=== PATIENT | male | born 1975 | race Caucasian/White ===

== ENCOUNTER 2017-06-17 05:38 | Day surgery (SDC) | payer OTHER ==
--- NOTE | 2017-06-14 13:47 | GHP ---
[f rep st] PREOP HISTORY AND PHYSICAL DATE OF ADMISSION: 06/17/2017 CHIEF COMPLAINT: Right inguinal hernia. HISTORY OF PRESENT ILLNESS: Roman is a 42-year-old man who first noticed a bulge in his right groin in 2011, which has been growing since that time. He reports that the bulge is worst with standing an d lifting and is reducible when he lays supine. He denies any fever, chills, nausea, vomiting, const ipation, diarrhea, or abdominal pain associated with the bulge. He also denies any skin changes over lying. PAST MEDICAL HISTORY: None. PAST SURGICAL HISTORY: None. MEDICATIONS: None. ALLERGIES: No known drug allergies. FAMILY HISTORY: No significant family medical history. SOCIAL HISTORY: He denies tobacco, alcohol, or recreational drug use. REVIEW OF SYSTEMS: A 10-point review of systems is negative, aside from the HPI. PHYSICAL EXAMINATION: GENERAL: Well-developed and well-nourished man in no acute distress. HEENT: Normocephalic and atraumatic. No hearing deficits. Pupils are equal and round. No scleral icterus . Mucous membranes are moist. NECK: Trachea is midline. RESPIRATORY: Clear to auscultation bilat erally with no increased work of breathing. CARDIOVASCULAR: Regular rate and rhythm with no periphe ral edema. ABDOMEN: Soft, nondistended, and nontender. He has a right-sided inguinal hernia, which increases with Valsalva. No overlying skin changes. No tenderness to palpation. No evidence of a left inguinal hernia. : Normal external male genitalia. Testes are descended bilaterally. PSYCH IATRIC: Mood and affect are normal. NEUROLOGIC: Grossly intact. IMPRESSION AND PLAN: Roman Cobb is a 42-year-old man with a symptomatic right inguinal hernia. We recommended laparoscopic possible open repair with mesh. We discussed risks of surgery including, but not limited to, heart attack, stroke, blood clots, or . We discussed risk of infection, bl eeding, and damage to surrounding structures, including bowel, bladder, and spermatic cord, which may lead to testicular ischemia. We also discussed the risk of recurrence and he understands the risks and would like to proceed. We anticipate this to be an outpatient procedure. He will receive antibi otics program management professional to the operating room. /[id number]/MODL
[2017-06-17] MEDS ORDERED: ceFAZolin 2 GM/SWFI 2 GM/20 ML SYR IVP ONE (05:40)
[2017-06-17] MEDS ORDERED: LR 1,000 ML IV ONE (05:42)
[2017-06-17] MEDS ORDERED: LIDOCAINE 1% 2 ML INJ ID PRN (05:42)
--- NOTE | 2017-06-17 06:31 | PDHPUP ---
History & Physical Update H&P update statement: This history and physical update is based on an assessment of the patient which was completed after admission or registration (within 24 hours), but prior to the surgery/procedure. H&P update: H&P reviewed & patient examined, no change in patient's condition since H&P completed
--- NOTE | 2017-06-17 06:52 | PDANEPAE ---
ANE History of Present Illness 42 M healthy for right inguinal hernia repair. ANE Past Medical History - Cardiovascular History Hx Hypertension: No Hx Arrhythmias: No Hx Chest Pain: No Hx Coronary Artery / Peripheral Vascular Disease: No Hx CHF / Valvular Disease: No Hx Palpitations: No - Pulmonary History Hx COPD: No Hx Asthma/Reactive Airway Disease: No Hx Recent Upper Respiratory Infection: No Hx Oxygen in Use at Home: No Hx Sleep Apnea: No Sleep Apnea Screening Result - Last Documented: Negative - Neurologic History Hx Cerebrovascular Accident: No Hx Seizures: No Hx Dementia: No - Endocrine History Hx Diabetes: No Hypothyroid: No Hyperthyroid: No Obesity: no - Renal History Hx Renal Disorders: No - Liver History Hx Hepatic Disorders: No - Neurological & Psychiatric Hx Hx Neurological and Psychiatric Disorders: No - Cancer History Hx Cancer: No - Congenital Disorder History Hx Congenital Disorders: No - GI History GERD: no Hx Gastrointestinal Disorders: No - Other Health History Other Health History: NEG - Chronic Pain History Chronic Pain: No - Surgical History Prior Surgeries: NONE ANE Review of Systems Review of Systems: - Exercise capacity Exercise capacity: >=4 METS METS (RN): 5 METS ANE Patient History - Allergies Allergies/Adverse Reactions: No Known Allergies Allergy (Unverified 06/15/17 17:10) - Home Medications Home Medications: NK [No Known Home Meds] 06/15/17 [Last Taken Unknown] - NPO status NPO Status: no food or drink >8 hours - Anes Hx Anes Hx: no prior problems - Smoking Hx Smoking Status: Never smoked Marijuana use: No - Alcohol Use Alcohol Use: None - Family Anes Hx Family Anes Hx: neg - N/A Family Hx Anesthesia Complications: NONE ANE Labs/Vital Signs - Vital Signs Vital Signs: reviewed preoperatively; see RN documention for details Blood Pressure: 103/64 Heart Rate: 44 Respiratory Rate: 18 O2 Sat (%): 96 Height: 187.96 cm Weight: 83.007 kg ANE Physical Exam - Airway Mallampati Score: Class 1 Mouth exam: normal dental/mouth exam - Pulmonary Pulmonary: no respiratory distress - Cardiovascular Cardiovascular: regular rate and rhythym - ASA Status ASA Status: I ANE Anesthesia Plan Anesthesia Plan: general endotracheal anesthesia Total IV Anesthesia: No
[2017-06-17] MEDS ORDERED: MIDAZOLAM 2 MG/2 ML VIAL IVP ONE (06:53)
[2017-06-17] MEDS ORDERED: BUPIVACAINE 0.5% 30 ML SDV ONE (06:57)
[2017-06-17] MEDS ORDERED: fentaNYL 100 MCG/2 ML INJ ONE (07:08)
[2017-06-17] MEDS ORDERED: ROCURONIUM 50 MG/5 ML VIAL ONE ×2 (07:08→07:40)
[2017-06-17] MEDS ORDERED: LIDOCAINE 2% 5 ML SDV ONE (07:08)
[2017-06-17] MEDS ORDERED: PROPOFOL 200 MG/20 ML VIAL ONE (07:08)
[2017-06-17] MEDS ORDERED: fentaNYL 100 MCG/2 ML INJ IVP PRN (07:28)
[2017-06-17] MEDS ORDERED: OXYCODONE/APAP 5/325 TAB PO PRN (07:28)
[2017-06-17] MEDS ORDERED: NALOXONE HCL 0.4 MG/ML INJ IVP PRN (07:28)
[2017-06-17] MEDS ORDERED: HYDROmorphONE/DILAUDID 1 MG/ML INJ IVP PRN (07:28)
[2017-06-17] MEDS ORDERED: ONDANSETRON 4 MG/2 ML VIAL IVP PRN (07:28)
[2017-06-17] MEDS ORDERED: ONDANSETRON 4 MG/2 ML VIAL ONE (07:29)
[2017-06-17] MEDS ORDERED: DEXAMETHASONE 4 MG/ML VIAL ONE (07:29)
[2017-06-17] MEDS ORDERED: KETOROLAC 30 MG/1 ML SDV ONE (07:57)
[2017-06-17] MEDS ORDERED: SUGAMMADEX SODIUM 200 MG/2 ML VIAL IVP ONE (07:59)
--- NOTE | 2017-06-17 08:03 | POSTOPPROG ---
Post Op Note Date of Operation: 06/17/17 Surgeon: Deneen Carmichael Records Administrator: reyna Anesthesiologist: darion Anesthesia: GET(General Endotracheal) Pre-op Diagnosis: right inguinal hernia Post-op Diagnosis: right initial indirect inguinal hernia Indication: 42 yo with inguinal hernia Procedure: lap rih Findings: direct inguinal hernia and none on left Inf/Abcess present in the surg proc area at time of surgery?: No Depth: Superfical (Skin SQ) EBL: Minimal
[2017-06-17 08:40] VITALS: TEMP 97.7
[2017-06-17 08:53] VITALS: PULSE 42
[2017-06-17] MEDS ORDERED: OXYCODONE/APAP 5/325 TAB ONE (08:55)
[2017-06-17 09:26] VITALS: RESP 14; O2SAT 99
[2017-06-17 09:44] VITALS: BP 100/61
--- NOTE | 2017-06-17 13:06 | POSTANESTH ---
Post Anesthetic Evaluation Cardiovascular Status: Normal, Stable, Similar to Pre-Op Cond Respiratory Status: Normal, Stable, Similar to Pre-op Cond. Level of Consciousness/Mental Status: Can Participate in Eval, Alert and Oriented Pain Control: Adequate, Prn Tx Ordered Nausea/Vomiting Control: Adequate, Prn Tx Ordered
--- NOTE | 2017-06-17 14:32 | GOP ---
[f rep st] OPERATIVE REPORT DATE OF OPERATION: 06/17/2017 SURGEON: Deneen Carmichael MD BODY COMPONENT ENGINEER: Chen Lai PA-C ANESTHESIA: General. ANESTHESIOLOGIST: Kyrie Mcfadden MD PREOPERATIVE DIAGNOSIS: Right inguinal hernia. POSTOPERATIVE DIAGNOSIS: Initial right indirect inguinal hernia. PROCEDURE PERFORMED: Laparoscopic right inguinal hernia repair with mesh. FINDINGS: Right direct hernia. No hernia on the left. SPECIMENS: None. INDICATIONS: The patient is a 42-year-old man who developed a large bulge in his right groin. DESCRIPTION OF PROCEDURE: The patient was brought into the operating room and placed supine on the table, and general anesthesia was administered. His abdomen was prepped and draped in the usual sterile fashion. Infiltrated all sites with 0.5% Marcaine prior to making incisions. I made an incision beneath his umbilicus. I dissected down below the subcutaneous tissues until I encountered the anterior rectus sheath. I divided the anterior rectus sheath, I swept the rectus muscles laterally, and inserted a balloon-tipped trocar directed toward the pubis. I performed hand insufflation with camera in place. I then exchanged this for the working balloon. This was connected to insufflation, and he was placed in a Trendelenburg position. I placed a 5 mm trocar at the pubis and a second trocar between the first and second trocars. I kept the inferior epigastric vessels anterior to the plane. I reduced the large direct inguinal hernia. I pushed the peritoneum back further on the cord. I placed a piece of laparoscopic self-fixating ProGrip mesh to cover the direct, indirect, and femoral spaces. I tacked this to the pubic tubercle and anteriorly. I then explored the left side and did not note a direct or indirect inguinal hernia. The preperitoneal space was allowed to desufflate, and the ports were removed. The fascia was closed with 0 Vicryl, skin closed with 4-0 Monocryl, and Dermabond applied. He was awakened in the operating room , extubated, and transferred to PACU in stable condition. /[id number]/MODL MTDD
== END 2017-06-17 10:05 | disposition home or self-care (01) ==
LOC: FSGY 05:38
PROVIDERS: ATTEND Surgery
PROC: 0YU54JZ Supplement Right Inguinal Region with Synthetic Substitute, Percutaneous Endoscopic Approach (ICD-10-PCS; principal; 2017-06-17 07:15)
DX: K40.90 Unilateral inguinal hernia, without obstruction or gangrene, not specified as recurrent (principal)
CPT/HCPCS: C1727; C1781; J0690; J1100; J1885; J2250; J2405; J2704; J3010

== ENCOUNTER → 2017-07-01 | Outpatient (CLI) | payer OTHER | LOC: FIMAGING 15:53 | PROVIDERS: ATTEND Surgery | DX: L76.32 Postprocedural hematoma of skin and subcutaneous tissue following other procedure (principal) ==